=== PATIENT | female | born 1985 | race Two or more races ===

== ENCOUNTER 2019-06-21 10:35 | Emergency (ER) | payer OTHER ==
[~2019-06-21] VITALS: Ht 180.3 cm; Wt 67.1 kg
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
[2019-06-21] MEDS ORDERED: ACETAMINOPHEN ES 500 MG TABLET ONE (11:49)
[2019-06-21] MEDS ORDERED: ACETAMINOPHEN 325 MG TABLET PO ONE (12:00)
[2019-06-21 12:20] VITALS: BP 136/99
--- NOTE | 2019-06-21 12:20 | NUR ---
SHOULDER SLING PROVIDED. Patient discharged to home in stable condition. Written and verbal after care instructions given. Patient verbalizes understanding of instruction.
== END 2019-06-21 12:20 | disposition home or self-care (01) ==
LOC: ER 10:36
DX: S80.211A Abrasion, right knee, initial encounter (principal); M25.512 Pain in left shoulder; F17.200 Nicotine dependence, unspecified, uncomplicated; Z91.018 Allergy to other foods; V49.49XA Driver injured in collision with other motor vehicles in traffic accident, initial encounter; Y93.89 Activity, other specified; Y92.413 State road as the place of occurrence of the external cause; Y99.8 Other external cause status
CPT/HCPCS: 73030; 84703; 99284; A6403